=== PATIENT | male | born 1950 | race Caucasian/White ===

== ENCOUNTER 2016-09-06 13:13 | Emergency (ER) | payer OTHER ==
[~2016-09-06] VITALS: Ht 182.9 cm; Wt 81.8 kg
[~2016-09-06 13:13] MED LIST: NOCURR
[2016-09-06] MEDS ORDERED: DEXTROSE 50%-WATER 25 GM/50 ML SYRINGE IVP ONE (13:38)
[2016-09-06 13:56] LABS: GLUCOSE,POINT OF CARE 172 MG/DL (70-110)
[2016-09-06 14:30] LABS: BASOPHILS % (AUTO) 0.5 % (0.0-2.0); EOSINOPHILS % (AUTO) 2.2 % (1.0-6.0); HEMATOCRIT 50.2 % (41-53); HEMOGLOBIN 16.6 g/dL (13.5-17.5); LYMPHOCYTES # (AUTO) 1.4 K/uL (1.0-4.8); LYMPHOCYTES % (AUTO) 19.9 % (22.0-44.0); MEAN CORPUSCULAR HEMOGLOBIN 32.6 pg (26.0-34.0); MEAN CORPUSCULAR HGB CONC 33.1 G/dL (31.0-37.0); MEAN CORPUSCULAR VOLUME 98 fL (80-100); MONOCYTES # (AUTO) 0.7 K/uL (0.1-1.0); NEUTROPHILS # (AUTO) 4.7 K/uL (1.8-7.7); NEUTROPHILS % (AUTO) 67.4 % (40.0-70.0); PLATELET COUNT (AUTO) 160 K/uL (150-450); RED CELL DISTRIBUTION WIDTH 14.6 % (11.5-14.5)
[2016-09-06 14:33] LABS: ANION GAP 14 mmol/L (8-16); CALCIUM, TOTAL 9.1 mg/dL (8.8-10.5); CARBON DIOXIDE 27 mmol/L (22-29); CHLORIDE 102 mmol/L (98-107); CREATININE 0.74 mg/dL (0.60-1.30); GLOMERULAR FILTR. RATE CALC > 60 mL/min (>60); SODIUM SERUM 143 mmol/L (136-145); UREA NITROGEN, BLOOD 11 mg/dL (7-18)
[2016-09-06 14:38] LABS: PROTHROMBIN TIME 10.8 SEC (9.4-11.6)
[2016-09-06 14:48] LABS: APPEARANCE,URINE CLEAR (CLEAR); GLUCOSE, URINE (UA) NEGATIVE (NEGATIVE); KETONES,URINE 15 mg/dL (NEGATIVE); LEUKOCYTE ESTERASE ,URINE NEGATIVE (NEGATIVE); OCCULT BLOOD,URINE NEGATIVE (NEGATIVE); PROTEIN,URINE NEGATIVE (NEGATIVE)
[2016-09-06 14:49] LABS: ADD UA MICROSCOPIC NO
[2016-09-06 14:58] LABS: ALANINE AMINOTRANSFERASE 41 U/L (12-78); ALBUMIN 3.7 g/dL (3.4-5.0); ASPARTATE AMINOTRANSFERASE 37 U/L (15-37); BILIRUBIN,TOTAL 0.7 mg/dL (0.1-1.0); CREATINE KINASE MB 1.9 ng/mL (0-5); CREATINE KINASE, TOTAL 124 U/L (39-308); TOTAL PROTEIN, SERUM 8.2 g/dL (6.4-8.2)
[2016-09-06 15:01] LABS: GLUCOSE,POINT OF CARE 97 MG/DL (70-110)
[2016-09-06] MEDS ORDERED: POTASSIUM CHLORIDE 20 MEQ ER TABLET PO ONE (15:45)
[2016-09-06 19:01] VITALS: BP 130/62
== END 2016-09-06 19:01 | disposition home or self-care (01) ==
LOC: EMS 13:25
DX: F10.229 Alcohol dependence with intoxication, unspecified (principal); M54.5 Low back pain; F17.210 Nicotine dependence, cigarettes, uncomplicated; Y90.4 Blood alcohol level of 80-99 mg/100 ml
CPT/HCPCS: 36415; 71010; 80053; 80307; 81003; 82550; 82553; 82962; 84484; 85025; 85610; 85730; 87040; 93005; 99285; G0480

== ENCOUNTER 2016-09-07 03:43 | Emergency (ER) | payer OTHER ==
[~2016-09-07] VITALS: Ht 188 cm; Wt 86.0 kg
[2016-09-07] MEDS ORDERED: KETOROLAC TROMETHAMINE 60 MG/2 ML VIAL IM ONE (04:15)
[2016-09-07 05:00] VITALS: BP 128/73
[2016-09-07] MEDS ORDERED: ChlordiazePOXIDE HCL 25 MG CAPSULE PO ONE (05:30)
== END 2016-09-07 05:47 | disposition home or self-care (01) ==
LOC: EMS 03:44
DX: M54.9 Dorsalgia, unspecified (principal); F10.239 Alcohol dependence with withdrawal, unspecified; F17.210 Nicotine dependence, cigarettes, uncomplicated; Y90.0 Blood alcohol level of less than 20 mg/100 ml
CPT/HCPCS: 36415; 96372; 99283; G0480; J1885

== ENCOUNTER 2017-05-06 20:56 | Emergency (ER) | payer MEDICARE, OTHER ==
[~2017-05-06] VITALS: Ht 188 cm; Wt 82.7 kg
[2017-05-06 22:41] LABS: BASOPHILS % (AUTO) 0.2 % (0.0-2.0); EOSINOPHILS % (AUTO) 0.7 % (1.0-6.0); HEMATOCRIT 45.7 % (41-53); HEMOGLOBIN 15.4 g/dL (13.5-17.5); LYMPHOCYTES # (AUTO) 1.6 K/uL (1.0-4.8); LYMPHOCYTES % (AUTO) 16.4 % (22.0-44.0); MEAN CORPUSCULAR HEMOGLOBIN 30.6 pg (26.0-34.0); MEAN CORPUSCULAR HGB CONC 33.7 G/dL (31.0-37.0); MEAN CORPUSCULAR VOLUME 91 fL (80-100); MONOCYTES # (AUTO) 1.4 K/uL (0.1-1.0); MONOCYTES % (AUTO) 13.9 % (2.0-9.0); NEUTROPHILS # (AUTO) 6.7 K/uL (1.8-7.7); NEUTROPHILS % (AUTO) 68.8 % (40.0-70.0); PLATELET COUNT (AUTO) 208 K/uL (150-450); RED BLOOD CELL COUNT(AUTO) 5.03 MIL/uL (4.50-5.90); RED CELL DISTRIBUTION WIDTH 14.8 % (11.5-14.5)
[2017-05-06 22:52] LABS: ANION GAP 15 mmol/L (8-16); CALCIUM, TOTAL 9.3 mg/dL (8.8-10.5); CARBON DIOXIDE 21 mmol/L (22-29); CHLORIDE 110 mmol/L (98-107); CREATININE 0.93 mg/dL (0.60-1.30); GLOMERULAR FILTR. RATE CALC > 60 mL/min (>60); GLUCOSE,RANDOM 85 mg/dL (70-110); POTASSIUM 3.1 mmol/L (3.5-5.1); SODIUM SERUM 146 mmol/L (136-145); UREA NITROGEN, BLOOD 27 mg/dL (7-18)
[2017-05-06 22:57] LABS: ALANINE AMINOTRANSFERASE 76 U/L (12-78); ALBUMIN 4.1 g/dL (3.4-5.0); ALKALINE PHOSPHATASE 56 U/L (46-116); ASPARTATE AMINOTRANSFERASE 49 U/L (15-37); BILIRUBIN,TOTAL 0.8 mg/dL (0.1-1.0); TOTAL PROTEIN, SERUM 8.6 g/dL (6.4-8.2)
[2017-05-07] MEDS ORDERED: BACITRACIN 0.9 GM PACKET OINTMENT TP ONE (01:00)
[2017-05-07] MEDS ORDERED: POTASSIUM CHLORIDE 10% 40 MEQ/30 ML LIQUID UDCUP PO ONE (01:00)
[2017-05-07 02:27] VITALS: BP 116/69
== END 2017-05-07 02:52 | disposition home or self-care (01) ==
LOC: EMS 20:57
DX: S00.03XA Contusion of scalp, initial encounter (principal); S50.312A Abrasion of left elbow, initial encounter; S50.311A Abrasion of right elbow, initial encounter; S90.415A Abrasion, left lesser toe(s), initial encounter; S90.414A Abrasion, right lesser toe(s), initial encounter; R55 Syncope and collapse; E87.6 Hypokalemia; F10.129 Alcohol abuse with intoxication, unspecified; F17.210 Nicotine dependence, cigarettes, uncomplicated; Y90.4 Blood alcohol level of 80-99 mg/100 ml; W18.39XA Other fall on same level, initial encounter; Y93.89 Activity, other specified; Y92.89 Other specified places as the place of occurrence of the external cause; Y99.8 Other external cause status
CPT/HCPCS: 36415; 70450; 80053; 85025; 99285; 99406; G0480; 99284

== ENCOUNTER 2017-05-23 12:19 | Inpatient (IN) | payer MEDICARE, MEDICAID ==
[~2017-05-23] VITALS: Ht 188 cm; Wt 79.9 kg
[2017-05-23 13:50] VITALS: BP 112/72
[2017-05-23] MEDS ORDERED: HALOPERIDOL 5 MG TABLET PO PRN (14:15)
[2017-05-23] MEDS ORDERED: TEMA15CA PO (14:44)
[2017-05-23] MEDS ORDERED: OXYC10 PO (14:44)
[2017-05-23] MEDS ORDERED: ALPR1TAB7 PO (14:44)
[2017-05-23] MEDS ORDERED: PNEUMOCOCCAL VACCINE POLYVALENT 0.5 ML VIAL [PPSV23] IM ONE (14:45)
[2017-05-23] MEDS ORDERED: INFLUENZA VIRUS VACCINE QVS 2017-18 (3YR+)/PF 60 MCG/0.5 ML SYRINGE IM ONE (14:45)
[2017-05-23 14:53] VITALS: BP 125/83
[2017-05-23 16:20] VITALS: BP 129/69
[2017-05-23] MEDS ORDERED: CloNIDine HCL 0.1 MG TABLET PO PRN (17:15)
[2017-05-23] MEDS ORDERED: ACETAMINOPHEN 325 MG TABLET PO PRN (17:15)
[2017-05-23] MEDS ORDERED: MAGNESIUM HYDROXIDE SUSPENSION 30 ML UDCUP PO PRN (17:15)
[2017-05-23] MEDS ORDERED: PETROLATUM,WHITE 71 GM JELLY TP PRN (17:15)
[2017-05-23] MEDS ORDERED: ONDANSETRON HCL 4 MG TABLET PO PRN (17:15)
[2017-05-23] MEDS ORDERED: BENZOCAINE/MENTHOL LOZENGE MM PRN (17:15)
[2017-05-23] MEDS ORDERED: MAG HYDROX/AL HYDROX/SIMETH ES 30 ML SUSPENSION UDCUP PO PRN (17:15)
[2017-05-23] MEDS ORDERED: BACITRACIN 28.4 GM OINTMENT TP PRN (17:15)
[2017-05-23] MEDS ORDERED: LOPERAMIDE HCL 2 MG CAPSULE PO PRN (17:15)
[2017-05-23] MEDS ORDERED: ALBUTEROL SULFATE HFA 90 MCG/PUFF 8 GM INHALER IH PRN (17:15)
[2017-05-23] MEDS: IBUPROFEN 600 MG TABLET PO PRN (17:22)
[2017-05-23 17:23] VITALS: BP 131/76
[2017-05-23] MEDS: DOCUSATE SODIUM 100 MG CAPSULE PO SCH (17:27)
[2017-05-24 06:50] VITALS: BP 128/81
[2017-05-24] MEDS: LORazepam 2 MG TABLET PO PRN (06:52)
[2017-05-24] MEDS: IBUPROFEN 600 MG TABLET PO PRN ×2 (06:53→15:50)
[2017-05-24] MEDS: DOCUSATE SODIUM 100 MG CAPSULE PO SCH (08:20)
[2017-05-24] MEDS: OMEPRAZOLE 20 MG CAPSULE PO SCH (08:20)
[2017-05-24 08:30] LABS: BASOPHILS % (AUTO) 0.4 % (0.0-2.0); EOSINOPHILS % (AUTO) 1.9 % (1.0-6.0); HEMATOCRIT 45.4 % (41-53); HEMOGLOBIN 15.3 g/dL (13.5-17.5); LYMPHOCYTES # (AUTO) 2.3 K/uL (1.0-4.8); LYMPHOCYTES % (AUTO) 24.1 % (22.0-44.0); MEAN CORPUSCULAR HEMOGLOBIN 31.4 pg (26.0-34.0); MEAN CORPUSCULAR HGB CONC 33.8 G/dL (31.0-37.0); MEAN CORPUSCULAR VOLUME 93 fL (80-100); MONOCYTES # (AUTO) 0.8 K/uL (0.1-1.0); NEUTROPHILS # (AUTO) 6.4 K/uL (1.8-7.7); NEUTROPHILS % (AUTO) 65.6 % (40.0-70.0); PLATELET COUNT (AUTO) 246 K/uL (150-450); RED BLOOD CELL COUNT(AUTO) 4.88 MIL/uL (4.50-5.90); RED CELL DISTRIBUTION WIDTH 15.7 % (11.5-14.5)
[2017-05-24 08:40] LABS: HEMOGLOBIN A1C 5.3 % (4.5-6.2)
[2017-05-24 08:42] VITALS: BP 128/80
[2017-05-24 08:45] LABS: ALANINE AMINOTRANSFERASE 37 U/L (12-78); ALBUMIN 3.3 g/dL (3.4-5.0); ALKALINE PHOSPHATASE 62 U/L (46-116); ANION GAP 11 mmol/L (8-16); ASPARTATE AMINOTRANSFERASE 49 U/L (15-37); BILIRUBIN,TOTAL 1.2 mg/dL (0.1-1.0); CALCIUM, TOTAL 8.8 mg/dL (8.8-10.5); CARBON DIOXIDE 24 mmol/L (22-29); CHLORIDE 102 mmol/L (98-107); CHOL/HDL RATIO 1.8 (4.2-7.3); CHOLESTEROL 138 mg/dL (131-200); CREATININE 1.04 mg/dL (0.60-1.30); FREE T4 (FREE THYROXINE) 1.04 ng/dL (0.76-1.46); GLOMERULAR FILTR. RATE CALC > 60 mL/min (>60); GLUCOSE,RANDOM 97 mg/dL (70-110); HDL CHOLESTEROL 76 mg/dL (40-60); LDL CHOL (CALC.) 47 mg/dL (0-130); POTASSIUM 3.9 mmol/L (3.5-5.1); SODIUM SERUM 137 mmol/L (136-145); THYROID STIMULATING HORMONE 1.56 uIU/mL (0.36-3.74); TOTAL PROTEIN, SERUM 7.8 g/dL (6.4-8.2); TRIGLYCERIDES 74 mg/dL (15-150); UREA NITROGEN, BLOOD 17 mg/dL (7-18)
[2017-05-24] MEDS ORDERED: PROMETHAZINE HCL 25 MG TABLET PO PRN (12:15)
[2017-05-24] MEDS ORDERED: LOPERAMIDE HCL 2 MG CAPSULE PO PRN (12:15)
[2017-05-24] MEDS ORDERED: GuaiFENesin/D-METHORPHAN [SUGAR-FREE] 200-20MG/10 ML SYRUP UDCUP PO PRN (12:15)
[2017-05-24] MEDS ORDERED: CYANOCOBALAMIN 1,000 MCG/ML VIAL IM ONE (12:15)
[2017-05-24] MEDS ORDERED: HydrOXYzine PAMOATE 50 MG CAPSULE PO PRN (12:15)
[2017-05-24] MEDS ORDERED: ChlordiazePOXIDE HCL 25 MG CAPSULE PO PRN (12:15)
[2017-05-24] MEDS: MULTIVITAMINS WITH MINERALS, THERAPEUTIC TABLET PO SCH (12:32)
[2017-05-24] MEDS: DULoxetine HCL 20 MG CAPSULE PO SCH (12:32)
[2017-05-24] MEDS: FOLIC ACID 1 MG TABLET PO SCH (12:32)
[2017-05-24 12:40] VITALS: BP 109/70
[2017-05-24 15:46] VITALS: BP 118/68
[2017-05-24 16:05] VITALS: BP 118/68
[2017-05-24] MEDS: DICLOFENAC SODIUM 1% 100 GM GEL [2GM] TP SCH (16:33)
[2017-05-24] MEDS: THIAMINE HCL 100 MG TABLET PO SCH (16:33)
[2017-05-24] MEDS: ZOLPIDEM TARTRATE 10 MG TABLET PO PRN (21:00)
[2017-05-25] VITALS (8 sets, daily range): BP systolic 100–122; BP diastolic 68–82
[2017-05-25] MEDS: IBUPROFEN 600 MG TABLET PO PRN ×2 (06:15→12:58)
[2017-05-25] MEDS ORDERED: ChlordiazePOXIDE HCL 25 MG CAPSULE PO PRN (07:00)
[2017-05-25] MEDS: MULTIVITAMINS WITH MINERALS, THERAPEUTIC TABLET PO SCH (08:36)
[2017-05-25] MEDS: DOCUSATE SODIUM 100 MG CAPSULE PO SCH (08:36)
[2017-05-25] MEDS: FOLIC ACID 1 MG TABLET PO SCH (08:36)
[2017-05-25] MEDS: ChlordiazePOXIDE HCL 25 MG CAPSULE PO SCH ×4 (08:36→20:49)
[2017-05-25] MEDS: DULoxetine HCL 20 MG CAPSULE PO SCH (08:37)
[2017-05-25] MEDS: THIAMINE HCL 100 MG TABLET PO SCH ×2 (08:37→16:18)
[2017-05-25] MEDS: OMEPRAZOLE 20 MG CAPSULE PO SCH (08:37)
[2017-05-25] MEDS: DICLOFENAC SODIUM 1% 100 GM GEL [2GM] TP SCH ×2 (08:38→16:18)
[2017-05-25] MEDS ORDERED: TRIAMCINOLONE 0.1% 15 GM OINTMENT TP PRN (09:30)
[2017-05-25] MEDS: TraMADol HCL 50 MG TABLET PO PRN (17:02)
[2017-05-25] MEDS: ZOLPIDEM TARTRATE 10 MG TABLET PO PRN (21:20)
[2017-05-26] VITALS (8 sets, daily range): BP systolic 99–116; BP diastolic 65–82
[2017-05-26] MEDS: IBUPROFEN 600 MG TABLET PO PRN ×2 (06:41→16:54)
[2017-05-26] MEDS: THIAMINE HCL 100 MG TABLET PO SCH ×2 (08:43→16:54)
[2017-05-26] MEDS: DULoxetine HCL 20 MG CAPSULE PO SCH (08:43)
[2017-05-26] MEDS: FOLIC ACID 1 MG TABLET PO SCH (08:43)
[2017-05-26] MEDS: MULTIVITAMINS WITH MINERALS, THERAPEUTIC TABLET PO SCH (08:43)
[2017-05-26] MEDS: ChlordiazePOXIDE HCL 25 MG CAPSULE PO SCH ×4 (08:43→20:15)
[2017-05-26] MEDS: DOCUSATE SODIUM 100 MG CAPSULE PO SCH (08:43)
[2017-05-26] MEDS: OMEPRAZOLE 20 MG CAPSULE PO SCH (08:43)
[2017-05-26] MEDS: DICLOFENAC SODIUM 1% 100 GM GEL [2GM] TP SCH ×2 (08:44→16:54)
[2017-05-26] MEDS: TraMADol HCL 50 MG TABLET PO PRN ×2 (10:12→21:13)
[2017-05-26] MEDS: ZOLPIDEM TARTRATE 10 MG TABLET PO PRN (21:13)
[2017-05-27] VITALS (7 sets, daily range): BP systolic 102–117; BP diastolic 60–79
[2017-05-27] MEDS: TraMADol HCL 50 MG TABLET PO PRN ×2 (06:38→21:20)
[2017-05-27] MEDS ORDERED: ChlordiazePOXIDE HCL 10 MG CAPSULE PO PRN (07:00)
[2017-05-27] MEDS: THIAMINE HCL 100 MG TABLET PO SCH ×2 (08:29→16:36)
[2017-05-27] MEDS: OMEPRAZOLE 20 MG CAPSULE PO SCH (08:29)
[2017-05-27] MEDS: MULTIVITAMINS WITH MINERALS, THERAPEUTIC TABLET PO SCH (08:29)
[2017-05-27] MEDS: ChlordiazePOXIDE HCL 10 MG CAPSULE PO SCH ×4 (08:29→20:30)
[2017-05-27] MEDS: DOCUSATE SODIUM 100 MG CAPSULE PO SCH (08:29)
[2017-05-27] MEDS: FOLIC ACID 1 MG TABLET PO SCH (08:29)
[2017-05-27] MEDS: DICLOFENAC SODIUM 1% 100 GM GEL [2GM] TP SCH ×2 (08:33→16:36)
[2017-05-27] MEDS: DULoxetine HCL 30 MG CAPSULE PO SCH (08:33)
[2017-05-27] MEDS: IBUPROFEN 600 MG TABLET PO PRN (16:10)
[2017-05-27] MEDS: ZOLPIDEM TARTRATE 10 MG TABLET PO PRN (21:50)
[2017-05-28] VITALS (7 sets, daily range): BP systolic 104–117; BP diastolic 60–73
[2017-05-28] MEDS: DOCUSATE SODIUM 100 MG CAPSULE PO SCH (08:20)
[2017-05-28] MEDS: DULoxetine HCL 30 MG CAPSULE PO SCH (08:20)
[2017-05-28] MEDS: THIAMINE HCL 100 MG TABLET PO SCH ×2 (08:20→16:34)
[2017-05-28] MEDS: FOLIC ACID 1 MG TABLET PO SCH (08:20)
[2017-05-28] MEDS: MULTIVITAMINS WITH MINERALS, THERAPEUTIC TABLET PO SCH (08:20)
[2017-05-28] MEDS: OMEPRAZOLE 20 MG CAPSULE PO SCH (08:20)
[2017-05-28] MEDS: IBUPROFEN 600 MG TABLET PO PRN ×2 (08:28→16:00)
[2017-05-28] MEDS: ChlordiazePOXIDE HCL 10 MG CAPSULE PO PRN ×2 (08:28→16:00)
[2017-05-28] MEDS: TraMADol HCL 50 MG TABLET PO PRN (21:40)
[2017-05-28] MEDS: ZOLPIDEM TARTRATE 10 MG TABLET PO PRN (22:27)
[2017-05-29 06:19] VITALS: BP 121/79
[2017-05-29] MEDS: IBUPROFEN 600 MG TABLET PO PRN ×2 (06:21→20:58)
[2017-05-29] MEDS: ChlordiazePOXIDE HCL 10 MG CAPSULE PO PRN (06:21)
[2017-05-29] MEDS: DOCUSATE SODIUM 100 MG CAPSULE PO SCH (08:11)
[2017-05-29] MEDS: OMEPRAZOLE 20 MG CAPSULE PO SCH (08:11)
[2017-05-29] MEDS: DULoxetine HCL 30 MG CAPSULE PO SCH (08:11)
[2017-05-29] MEDS: MULTIVITAMINS WITH MINERALS, THERAPEUTIC TABLET PO SCH (08:11)
[2017-05-29] MEDS: THIAMINE HCL 100 MG TABLET PO SCH ×2 (08:11→16:32)
[2017-05-29] MEDS: FOLIC ACID 1 MG TABLET PO SCH (08:11)
[2017-05-29 08:42] VITALS: BP 101/70
[2017-05-29 12:54] VITALS: BP 112/70
[2017-05-29] MEDS: LORazepam 2 MG TABLET PO PRN (12:54)
[2017-05-29] MEDS: TraMADol HCL 50 MG TABLET PO PRN (12:55)
[2017-05-29 16:38] VITALS: BP 106/63
[2017-05-29 20:58] VITALS: BP 102/70
[2017-05-29] MEDS: ZOLPIDEM TARTRATE 10 MG TABLET PO PRN (22:11)
[2017-05-30 06:45] VITALS: BP 104/68
[2017-05-30] MEDS: IBUPROFEN 600 MG TABLET PO PRN ×3 (06:51→22:23)
[2017-05-30 08:07] VITALS: BP 116/68
[2017-05-30] MEDS: FOLIC ACID 1 MG TABLET PO SCH (08:11)
[2017-05-30] MEDS: OMEPRAZOLE 20 MG CAPSULE PO SCH (08:11)
[2017-05-30] MEDS: DULoxetine HCL 30 MG CAPSULE PO SCH (08:12)
[2017-05-30] MEDS: MULTIVITAMINS WITH MINERALS, THERAPEUTIC TABLET PO SCH (08:12)
[2017-05-30] MEDS: THIAMINE HCL 100 MG TABLET PO SCH ×2 (08:12→16:36)
[2017-05-30] MEDS: DOCUSATE SODIUM 100 MG CAPSULE PO SCH (08:12)
[2017-05-30] MEDS: LORazepam 2 MG TABLET PO PRN ×2 (08:23→13:17)
[2017-05-30 13:17] VITALS: BP 116/74
[2017-05-30 16:25] VITALS: BP 109/67
[2017-05-30 22:21] VITALS: BP 101/66
[2017-05-31 06:15] VITALS: BP 118/68
[2017-05-31] MEDS: LORazepam 2 MG TABLET PO PRN (06:20)
[2017-05-31] MEDS: IBUPROFEN 600 MG TABLET PO PRN ×2 (06:21→16:12)
[2017-05-31] MEDS: DOCUSATE SODIUM 100 MG CAPSULE PO SCH (08:19)
[2017-05-31] MEDS: OMEPRAZOLE 20 MG CAPSULE PO SCH (08:19)
[2017-05-31] MEDS: FOLIC ACID 1 MG TABLET PO SCH (08:19)
[2017-05-31] MEDS: THIAMINE HCL 100 MG TABLET PO SCH ×2 (08:19→16:12)
[2017-05-31] MEDS: MULTIVITAMINS WITH MINERALS, THERAPEUTIC TABLET PO SCH (08:19)
[2017-05-31] MEDS: DULoxetine HCL 30 MG CAPSULE PO SCH (08:19)
[2017-05-31 08:25] VITALS: BP 105/66
[2017-05-31 16:12] VITALS: BP 110/72
[2017-05-31 21:15] VITALS: BP 116/74
[2017-05-31] MEDS: ZOLPIDEM TARTRATE 10 MG TABLET PO PRN (21:15)
[2017-05-31] MEDS: TraMADol HCL 50 MG TABLET PO PRN (21:15)
[2017-06-01 00:25] VITALS: BP 100/65
[2017-06-01] MEDS: LORazepam 2 MG TABLET PO PRN ×2 (07:14→16:34)
[2017-06-01] MEDS: IBUPROFEN 600 MG TABLET PO PRN ×2 (07:14→21:13)
[2017-06-01] MEDS: MULTIVITAMINS WITH MINERALS, THERAPEUTIC TABLET PO SCH (08:05)
[2017-06-01] MEDS: THIAMINE HCL 100 MG TABLET PO SCH ×2 (08:05→16:34)
[2017-06-01] MEDS: FOLIC ACID 1 MG TABLET PO SCH (08:05)
[2017-06-01] MEDS: DULoxetine HCL 30 MG CAPSULE PO SCH (08:05)
[2017-06-01] MEDS: DOCUSATE SODIUM 100 MG CAPSULE PO SCH (08:05)
[2017-06-01] MEDS: OMEPRAZOLE 20 MG CAPSULE PO SCH (08:05)
[2017-06-01 08:26] VITALS: BP 108/73
[2017-06-01 16:28] VITALS: BP 120/71
[2017-06-01 21:11] VITALS: BP 118/79
[2017-06-01] MEDS: ZOLPIDEM TARTRATE 10 MG TABLET PO PRN (21:13)
[2017-06-02 00:10] VITALS: BP 101/62
[2017-06-02] MEDS: LORazepam 2 MG TABLET PO PRN ×2 (06:58→13:51)
[2017-06-02] MEDS: IBUPROFEN 600 MG TABLET PO PRN ×2 (06:58→21:57)
[2017-06-02 08:06] VITALS: BP 114/60
[2017-06-02] MEDS: FOLIC ACID 1 MG TABLET PO SCH (08:22)
[2017-06-02] MEDS: MULTIVITAMINS WITH MINERALS, THERAPEUTIC TABLET PO SCH (08:22)
[2017-06-02] MEDS: OMEPRAZOLE 20 MG CAPSULE PO SCH (08:22)
[2017-06-02] MEDS: THIAMINE HCL 100 MG TABLET PO SCH ×2 (08:22→16:29)
[2017-06-02] MEDS: DOCUSATE SODIUM 100 MG CAPSULE PO SCH (08:22)
[2017-06-02] MEDS: DULoxetine HCL 30 MG CAPSULE PO SCH (08:23)
[2017-06-02 13:51] VITALS: BP 113/71
[2017-06-02] MEDS: TraMADol HCL 50 MG TABLET PO PRN (13:51)
[2017-06-02 16:04] VITALS: BP 107/65
[2017-06-02 20:58] VITALS: BP 111/68
[2017-06-02] MEDS: ZOLPIDEM TARTRATE 10 MG TABLET PO PRN (21:57)
[2017-06-03 06:30] VITALS: BP 114/77
[2017-06-03] MEDS: LORazepam 2 MG TABLET PO PRN ×2 (06:34→13:03)
[2017-06-03] MEDS: TraMADol HCL 50 MG TABLET PO PRN (06:34)
[2017-06-03] MEDS: OMEPRAZOLE 20 MG CAPSULE PO SCH (08:14)
[2017-06-03] MEDS: MULTIVITAMINS WITH MINERALS, THERAPEUTIC TABLET PO SCH (08:14)
[2017-06-03] MEDS: DULoxetine HCL 30 MG CAPSULE PO SCH (08:14)
[2017-06-03] MEDS: DOCUSATE SODIUM 100 MG CAPSULE PO SCH (08:14)
[2017-06-03] MEDS: THIAMINE HCL 100 MG TABLET PO SCH (08:14)
[2017-06-03 09:27] VITALS: BP 119/86
[2017-06-03 13:03] VITALS: BP 112/76
[2017-06-03] MEDS: IBUPROFEN 600 MG TABLET PO PRN ×2 (13:03→21:13)
[2017-06-03 17:29] VITALS: BP 122/82
[2017-06-03 21:11] VITALS: BP 115/80
[2017-06-03] MEDS: ZOLPIDEM TARTRATE 10 MG TABLET PO PRN (21:13)
[2017-06-04 06:32] VITALS: BP 116/65
[2017-06-04] MEDS: LORazepam 2 MG TABLET PO PRN ×2 (06:39→14:46)
[2017-06-04] MEDS: IBUPROFEN 600 MG TABLET PO PRN ×3 (06:39→21:02)
[2017-06-04 08:30] VITALS: BP 101/64
[2017-06-04] MEDS: OMEPRAZOLE 20 MG CAPSULE PO SCH (08:51)
[2017-06-04] MEDS: MULTIVITAMINS WITH MINERALS, THERAPEUTIC TABLET PO SCH (08:51)
[2017-06-04] MEDS: DULoxetine HCL 30 MG CAPSULE PO SCH (08:51)
[2017-06-04] MEDS: DOCUSATE SODIUM 100 MG CAPSULE PO SCH (08:51)
[2017-06-04 14:01] VITALS: BP 113/72
[2017-06-04 16:13] VITALS: BP 119/69
[2017-06-04 21:00] VITALS: BP 112/79
[2017-06-04] MEDS: ZOLPIDEM TARTRATE 10 MG TABLET PO PRN (21:02)
[2017-06-05 06:22] VITALS: BP 120/90
[2017-06-05] MEDS: LORazepam 2 MG TABLET PO PRN ×2 (06:27→13:44)
[2017-06-05] MEDS: IBUPROFEN 600 MG TABLET PO PRN ×3 (06:27→21:38)
[2017-06-05 08:33] VITALS: BP 100/69
[2017-06-05] MEDS: DOCUSATE SODIUM 100 MG CAPSULE PO SCH (08:56)
[2017-06-05] MEDS: OMEPRAZOLE 20 MG CAPSULE PO SCH (08:57)
[2017-06-05] MEDS: MULTIVITAMINS WITH MINERALS, THERAPEUTIC TABLET PO SCH (08:57)
[2017-06-05] MEDS: DULoxetine HCL 30 MG CAPSULE PO SCH ×2 (08:58→22:50)
[2017-06-05 13:47] VITALS: BP 110/77
[2017-06-05 16:06] VITALS: BP 117/66
[2017-06-05] MEDS ORDERED: DULoxetine HCL 30 MG CAPSULE PO SCH (21:00)
[2017-06-05 21:35] VITALS: BP 114/72
[2017-06-05] MEDS: ZOLPIDEM TARTRATE 10 MG TABLET PO PRN (21:37)
[2017-06-06] MEDS: LORazepam 2 MG TABLET PO PRN ×3 (06:38→20:35)
[2017-06-06 06:39] VITALS: BP 101/66
[2017-06-06] MEDS: IBUPROFEN 600 MG TABLET PO PRN ×3 (06:39→20:35)
[2017-06-06] MEDS: MULTIVITAMINS WITH MINERALS, THERAPEUTIC TABLET PO SCH (08:04)
[2017-06-06] MEDS: OMEPRAZOLE 20 MG CAPSULE PO SCH (08:04)
[2017-06-06] MEDS: DOCUSATE SODIUM 100 MG CAPSULE PO SCH (08:04)
[2017-06-06] MEDS: DULoxetine HCL 30 MG CAPSULE PO SCH ×2 (08:04→16:37)
[2017-06-06 08:40] VITALS: BP 92/61
[2017-06-06 13:49] VITALS: BP 115/77
[2017-06-06 14:51] VITALS: BP 110/70
[2017-06-06 16:30] VITALS: BP 109/68
[2017-06-06 20:34] VITALS: BP 122/83
[2017-06-07 01:03] VITALS: BP 100/63
[2017-06-07] MEDS: MULTIVITAMINS WITH MINERALS, THERAPEUTIC TABLET PO SCH (08:07)
[2017-06-07] MEDS: DULoxetine HCL 30 MG CAPSULE PO SCH ×2 (08:08→16:40)
[2017-06-07] MEDS: DOCUSATE SODIUM 100 MG CAPSULE PO SCH (08:08)
[2017-06-07] MEDS: OMEPRAZOLE 20 MG CAPSULE PO SCH (08:08)
[2017-06-07 08:20] VITALS: BP 110/68
[2017-06-07] MEDS: LORazepam 2 MG TABLET PO PRN ×2 (08:20→15:11)
[2017-06-07] MEDS: IBUPROFEN 600 MG TABLET PO PRN ×3 (08:20→21:54)
[2017-06-07 08:49] VITALS: BP 108/83
[2017-06-07 15:11] VITALS: BP 119/72
[2017-06-07 15:59] VITALS: BP 104/65
[2017-06-07 21:52] VITALS: BP 123/83
[2017-06-07] MEDS: ZOLPIDEM TARTRATE 10 MG TABLET PO PRN (21:54)
[2017-06-08 06:25] VITALS: BP 101/60
[2017-06-08] MEDS: LORazepam 2 MG TABLET PO PRN ×2 (06:26→14:07)
[2017-06-08] MEDS: IBUPROFEN 600 MG TABLET PO PRN ×3 (06:26→21:48)
[2017-06-08] MEDS: DOCUSATE SODIUM 100 MG CAPSULE PO SCH (08:12)
[2017-06-08] MEDS: DULoxetine HCL 30 MG CAPSULE PO SCH ×2 (08:12→16:13)
[2017-06-08] MEDS: MULTIVITAMINS WITH MINERALS, THERAPEUTIC TABLET PO SCH (08:12)
[2017-06-08] MEDS: OMEPRAZOLE 20 MG CAPSULE PO SCH (08:13)
[2017-06-08 09:00] VITALS: BP 102/64
[2017-06-08 14:07] VITALS: BP 118/86
[2017-06-08 16:16] VITALS: BP 121/84
[2017-06-08] MEDS: ZOLPIDEM TARTRATE 10 MG TABLET PO PRN (20:46)
[2017-06-08] MEDS ORDERED: MIRTAZAPINE 15 MG TABLET PO SCH (21:00)
[2017-06-08 21:50] VITALS: BP 125/90
[2017-06-09 00:15] VITALS: BP 103/61
[2017-06-09] MEDS: OMEPRAZOLE 20 MG CAPSULE PO SCH (08:09)
[2017-06-09] MEDS: DOCUSATE SODIUM 100 MG CAPSULE PO SCH (08:09)
[2017-06-09] MEDS: DULoxetine HCL 30 MG CAPSULE PO SCH ×2 (08:09→17:08)
[2017-06-09] MEDS: MULTIVITAMINS WITH MINERALS, THERAPEUTIC TABLET PO SCH (08:09)
[2017-06-09 08:10] VITALS: BP 113/74
[2017-06-09] MEDS: IBUPROFEN 600 MG TABLET PO PRN ×2 (08:10→16:27)
[2017-06-09] MEDS: LORazepam 2 MG TABLET PO PRN ×2 (08:10→16:27)
[2017-06-09 08:26] VITALS: BP 113/74
[2017-06-09 16:12] VITALS: BP 105/64
[2017-06-09 16:21] VITALS: BP 111/74
[2017-06-09] MEDS: MIRTAZAPINE 15 MG TABLET PO SCH (20:49)
[2017-06-10 07:59] VITALS: BP 119/78
[2017-06-10 08:06] VITALS: BP 119/78
[2017-06-10] MEDS: IBUPROFEN 600 MG TABLET PO PRN ×2 (08:09→16:27)
[2017-06-10] MEDS: DOCUSATE SODIUM 100 MG CAPSULE PO SCH (08:09)
[2017-06-10] MEDS: DULoxetine HCL 30 MG CAPSULE PO SCH ×2 (08:09→16:48)
[2017-06-10] MEDS: LORazepam 2 MG TABLET PO PRN ×2 (08:09→16:27)
[2017-06-10] MEDS: OMEPRAZOLE 20 MG CAPSULE PO SCH (08:09)
[2017-06-10] MEDS: MULTIVITAMINS WITH MINERALS, THERAPEUTIC TABLET PO SCH (08:09)
[2017-06-10 16:10] VITALS: BP 121/79
[2017-06-10] MEDS: MIRTAZAPINE 15 MG TABLET PO SCH (20:33)
[2017-06-11 07:20] VITALS: BP 118/82
[2017-06-11] MEDS: IBUPROFEN 600 MG TABLET PO PRN (07:24)
[2017-06-11] MEDS: LORazepam 2 MG TABLET PO PRN (07:24)
[2017-06-11] MEDS: DOCUSATE SODIUM 100 MG CAPSULE PO SCH (08:03)
[2017-06-11] MEDS: OMEPRAZOLE 20 MG CAPSULE PO SCH (08:03)
[2017-06-11] MEDS: DULoxetine HCL 30 MG CAPSULE PO SCH (08:03)
[2017-06-11] MEDS: MULTIVITAMINS WITH MINERALS, THERAPEUTIC TABLET PO SCH (08:03)
[2017-06-11 08:45] VITALS: BP 100/71
[2017-06-11] MEDS ORDERED: DULO30CA2 PO (13:44)
[2017-06-11] MEDS ORDERED: MIRT15 PO (13:44)
== END 2017-06-11 15:25 | DRG 885 ==
LOC: B2X 14:10
PROVIDERS: ADMIT Psychiatry & Neurology Child & Adolescent Psychiatry; ATTEND Psychiatry & Neurology Child & Adolescent Psychiatry
DX: F33.2 Major depressive disorder, recurrent severe without psychotic features (principal); B19.20 Unspecified viral hepatitis C without hepatic coma; G62.9 Polyneuropathy, unspecified; J44.9 Chronic obstructive pulmonary disease, unspecified; F10.239 Alcohol dependence with withdrawal, unspecified; F29 Unspecified psychosis not due to a substance or known physiological condition; F12.90 Cannabis use, unspecified, uncomplicated; F17.200 Nicotine dependence, unspecified, uncomplicated; F41.9 Anxiety disorder, unspecified; G47.00 Insomnia, unspecified; G89.29 Other chronic pain; L30.9 Dermatitis, unspecified; M19.90 Unspecified osteoarthritis, unspecified site; M54.9 Dorsalgia, unspecified; R26.9 Unspecified abnormalities of gait and mobility; Z59.0 Homelessness; Z91.5 Personal history of self-harm; Z28.21 Immunization not carried out because of patient refusal; Z71.41 Alcohol abuse counseling and surveillance of alcoholic; Z71.6 Tobacco abuse counseling; Z71.51 Drug abuse counseling and surveillance of drug abuser; Z79.899 Other long term (current) drug therapy
CPT/HCPCS: 82306; 83036; 84439; 84443; J3420

== ENCOUNTER 2018-07-02 18:54 | Emergency (ER) | payer MEDICARE, OTHER ==
[~2018-07-02 18:54] MED LIST changes: +DULO30CA2 PO; +MIRT15 PO; -NOCURR
[2018-07-02] MEDS ORDERED: SODIUM CHLORIDE 0.9% 1,000 ML IV ONE (19:45)
[2018-07-02 20:29] LABS: AMPHET/METH SCREEN,URINE NEGATIVE (NEGATIVE); BARBITURATE SCREEN, URINE NEGATIVE (NEGATIVE); BENZODIAZEPINES SCREEN,URINE POSITIVE (NEGATIVE); CANNABINOID SCREEN,URINE POSITIVE (NEGATIVE); COCAINE SCREEN,URINE NEGATIVE (NEGATIVE); METHADONE SCREEN, URINE NEGATIVE (NEGATIVE); OPIATE SCREEN,URINE POSITIVE (NEGATIVE)
[2018-07-02 20:34] LABS: PHENCYCLIDINE SCREEN,URINE NEGATIVE (NEGATIVE)
[2018-07-02 21:02] LABS: BASOPHILS % (AUTO) 0.6 % (0.0-2.0); HEMATOCRIT 48.7 % (41-53); HEMOGLOBIN 16.2 g/dL (13.5-17.5); LYMPHOCYTES # (AUTO) 1.5 K/uL (1.0-4.8); LYMPHOCYTES % (AUTO) 23.8 % (22.0-44.0); MEAN CORPUSCULAR HEMOGLOBIN 30.6 pg (26.0-34.0); MEAN CORPUSCULAR HGB CONC 33.3 G/dL (31.0-37.0); MEAN CORPUSCULAR VOLUME 92 fL (80-100); MONOCYTES # (AUTO) 0.7 K/uL (0.1-1.0); MONOCYTES % (AUTO) 11.3 % (2.0-9.0); NEUTROPHILS # (AUTO) 3.9 K/uL (1.8-7.7); NEUTROPHILS % (AUTO) 60.3 % (40.0-70.0); PLATELET COUNT (AUTO) 221 K/uL (150-450); RED CELL DISTRIBUTION WIDTH 14.4 % (11.5-14.5)
[2018-07-02 21:44] LABS: ALANINE AMINOTRANSFERASE 33 U/L (12-78); ALBUMIN 3.6 g/dL (3.4-5.0); ALKALINE PHOSPHATASE 62 U/L (46-116); ANION GAP 11 mmol/L (8-16); ASPARTATE AMINOTRANSFERASE 41 U/L (15-37); BILIRUBIN,TOTAL 0.5 mg/dL (0.1-1.0); CALCIUM, TOTAL 9.2 mg/dL (8.8-10.5); CARBON DIOXIDE 26 mmol/L (22-29); CHLORIDE 106 mmol/L (98-107); CREATININE 0.67 mg/dL (0.60-1.30); GLOMERULAR FILTR. RATE CALC > 60 mL/min (>60); GLUCOSE,RANDOM 79 mg/dL (70-110); POTASSIUM 3.1 mmol/L (3.5-5.1); SODIUM SERUM 143 mmol/L (136-145); TOTAL PROTEIN, SERUM 7.1 g/dL (6.4-8.2); UREA NITROGEN, BLOOD 6 mg/dL (7-18)
[2018-07-02] MEDS ORDERED: POTASSIUM CHLORIDE 20 MEQ ER TABLET PO ONE (22:15)
[2018-07-03 01:15] VITALS: BP 114/77
== END 2018-07-03 01:32 | disposition home or self-care (01) ==
LOC: EMS 18:55
DX: S05.11XA Contusion of eyeball and orbital tissues, right eye, initial encounter (principal); F10.129 Alcohol abuse with intoxication, unspecified; F19.10 Other psychoactive substance abuse, uncomplicated; G89.29 Other chronic pain; F41.9 Anxiety disorder, unspecified; F17.210 Nicotine dependence, cigarettes, uncomplicated; F12.90 Cannabis use, unspecified, uncomplicated; W19.XXXA Unspecified fall, initial encounter; Y93.89 Activity, other specified; Y92.89 Other specified places as the place of occurrence of the external cause; Y99.8 Other external cause status
CPT/HCPCS: 36415; 70450; 80053; 80307; 85025; 99285; G0480; J7030